=== PATIENT | male | born 1975 | race Caucasian/White ===

== ENCOUNTER 2016-05-07 04:40 | Emergency (ER) | payer OTHER ==
[2016-05-07 05:02] VITALS: BMI 37.5
[2016-05-07] MEDS ORDERED: SODIUM CHLORIDE 1,000 ML IV STA (05:02)
[2016-05-07] MEDS ORDERED: FAMOTIDINE 20 MG/50 ML IVPB 50 ML IVPB ONE ×2 (05:02→05:11)
[2016-05-07] MEDS ORDERED: methylPREDNISolone NA SUCC 125 MG/2 ML VIAL IVPB ONE (05:02)
--- NOTE | 2016-05-07 05:09 | PDOC ---
History of Present Illness - General Chief Complaint: Allergic Reaction Stated Complaint: ALLERGIC REACTION Time Seen by Provider: 05/07/16 04:46 History Source: Patient Exam Limitations: No Limitations - History of Present Illness Initial Comments: 05/07/16 05:07 41yo Male patient presents to ED c/o facial swelling and lip swelling. Patient states similar symptoms 4 years ago but not sure what caused it. However, patient states he take Lisinopril daily for B/P. He also states that symptom happened intermittently throughout the week but he continued to take the medications as symptoms worsen. Denies CP, Abd pain, Back pain, n/v/d, fever, diff breathing, or any other complaints at this time. Timing/Duration: unsure Severity: moderate Modifying Factors: worse with: cold therapy, eating, immobilization, medication , movement, rest, other Associated Symptoms: denies: denies symptoms, chest pain, cough, diaphoresis, fever/chills, headaches, loss of appetite, malaise, nausea/vomiting, rash, seizure, shortness of breath, syncope, weakness, other Aspirin Received prior to arrival: No: no aspirin today, unknown, 81 mg x 1, 81 mg x 2, 81 mg x 3, 81 mg x 4, 325 mg x 1, provided at home, provided by EMS, provided by [facility] Contraindications(Core Measure): No: Allergy, Other, Active Blding w/i 24 hrs., Plavix, Receiving Warfarin Past History - Travel Traveled outside of the country in the last 30 days: No Close contact w/someone who was outside of country & ill: No - Past Medical History Allergies/Adverse Reactions: Allergies Allergy/AdvReac Type Severity Reaction Status Date / Time lisinopril Allergy Severe Swelling Verified 05/07/16 06:50 Penicillins Allergy Rash Verified 05/07/16 04:48 Pork/Porcine Containing Allergy Verified 05/07/16 04:48 Products [Pork/Porcine Product Derivatives] Home Medications: Ambulatory Orders Lisinopril [Prinivil] 20 mg PO DAILY 05/07/16 HTN: Yes - Immunization History Immunization Up to Date: Yes - Psycho/Social/Smoking Cessation Hx Anxiety: No Suicidal Ideation: No Smoking Status: No Smoking History: Never smoked Have you smoked in the past 12 months: No Number of Cigarettes Smoked Daily: 0 Cigars Per Day: 0 Information on smoking cessation initiated: No Hx Alcohol Use: No Drug/Substance Use Hx: No Substance Use Type: None Review of Systems - Review of Systems Able to Perform ROS?: Yes Is the patient limited Cypriot proficient: No Constitutional: No: Chills, Fever HEENTM: Yes: Mouth Swelling, Other (Lip and facial swelling.). No: Eye Pain, Blurred Vision, Throat Pain, Throat Swelling Respiratory: No: Cough, Orthopnea, Shortness of Breath Cardiac (ROS): No: Chest Pain ABD/GI: No: Diarrhea, Nausea, Vomiting : No: Burning, Dysuria Musculoskeletal: No: Back Pain Integumentary: No: Bruising, Erythema, Rash, Sweating Neurological: No: Headache, Numbness, Tremors, Dizziness Psychiatric: No: Anxiety Endocrine: No: Flushing Hematologic/Lymphatic: No: Easy Bleeding, Easy Bruising, Swollen Glands All Other Systems: Reviewed and Negative *Physical Exam - Vital Signs Last Vital Signs Temp Pulse Resp BP Pulse Ox 98.1 F 85 20 149/73 100 05/07/16 04:48 05/07/16 04:48 05/07/16 04:48 05/07/16 04:48 05/07/16 04:48 - Physical Exam General Appearance: Yes: Nourished, Appropriately Dressed. No: Apparent Distress, Mild Distress HEENT: positive: EOMI, YASSINE, Normal ENT Inspection, Normal Voice, Symmetrical, TMs Normal, Pharynx Normal, Other (Moderate facial and lip swelling noted on examination. No acute or respiratory distress noted.). negative: Excessive drooling Neck: positive: Trachea midline, Supple Respiratory/Chest: positive: Lungs Clear, Normal Breath Sounds Cardiovascular: positive: Regular Rhythm, Regular Rate Gastrointestinal/Abdominal: positive: Normal Bowel Sounds, Soft Lymphatic: negative: Adenopathy Musculoskeletal: positive: Normal Inspection Extremity: positive: Normal Capillary Refill, Normal Inspection, Normal Range of Motion Integumentary: positive: Normal Color, Dry, Warm Neurologic: positive: boardmarker II-XII NML intact, Fully Oriented, Alert, Normal Mood/ Affect, Normal Response, Motor Strength /5 ED Treatment Course - LABORATORY CBC & Chemistry Diagram: 05/07/16 05:22 05/07/16 05:22 *DC/Admit/Observation/Transfer Diagnosis at time of Disposition: Angioedema Qualifiers: Encounter type: initial encounter Qualified Code(s): T78.3XXA - Angioneurotic edema, initial encounter - Discharge Dispostion Disposition: HOME Condition at time of disposition: Improved - Referrals Referrals: Luciana Antunez MD [Primary Care Provider] - - Patient Instructions Printed Discharge Instructions: DI for Angioedema, DI for Adverse Drug Reaction -- Allergic Additional Instructions: Discontinue your medication and go directly to your doctor to discuss other medication regimen. May return to the ED at any given time if your symptoms return.
[2016-05-07] MEDS ORDERED: methylPREDNISolone NA SUCC 125 MG/2 ML VIAL ONE (05:10)
[2016-05-07 05:29] LABS: BASOPHIL 0.6 % (0-2.0); EOSINOPHIL 1.8 % (0-4.5); MCH 28.7 pg (25.7-33.7); MCHC 32.4 g/dl (32.0-35.9); MEAN CELL VOLUME 88.6 fl (80-96); MEAN PLT VOLUME 8.3 fl (7.5-11.1); NEUTROPHILS 58.6 % (42.8-82.8); PLATELET COUNT 312 K/MM3 (134-434); RDW 13.5 % (11.9-15.9); WHITE BLOOD COUNT 7.3 K/mm3 (4.0-10.0)
[2016-05-07 06:02] LABS: ALBUMIN 3.8 g/dl (3.4-5.0); ALK PHOS 80 U/L (45-117); ANION GAP 8 (8-16); BILIRUBIN,TOTAL 0.3 mg/dL (0.2-1.0); CALCIUM 8.1 mg/dL (8.5-10.1); CO2 27 mmol/L (21-32); CREATININE 0.8 mg/dL (0.7-1.3); GLUCOSE,RANDOM 103 mg/dL (74-106); SGOT/AST 24 U/L (15-37); SGPT/ALT 53 U/L (12-78); TOT PROT 6.6 g/dl (6.4-8.2)
--- NOTE | 2016-05-07 07:52 | PDOC ---
History of Present Illness - General Chief Complaint: Allergic Reaction Stated Complaint: ALLERGIC REACTION Time Seen by Provider: 05/07/16 04:46 Past History - Past Medical History Allergies/Adverse Reactions: Allergies Allergy/AdvReac Type Severity Reaction Status Date / Time lisinopril Allergy Severe Swelling Verified 05/07/16 06:50 Penicillins Allergy Rash Verified 05/07/16 04:48 Pork/Porcine Containing Allergy Verified 05/07/16 04:48 Products [Pork/Porcine Product Derivatives] Home Medications: Ambulatory Orders Lisinopril [Prinivil] 20 mg PO DAILY 05/07/16 HTN: Yes - Immunization History Immunization Up to Date: Yes - Psycho/Social/Smoking Cessation Hx Anxiety: No Suicidal Ideation: No Smoking Status: No Smoking History: Never smoked Have you smoked in the past 12 months: No Number of Cigarettes Smoked Daily: 0 Cigars Per Day: 0 Information on smoking cessation initiated: No Hx Alcohol Use: No Drug/Substance Use Hx: No Substance Use Type: None *Physical Exam - Vital Signs Last Vital Signs Temp Pulse Resp BP Pulse Ox 98.1 F 85 20 149/73 100 05/07/16 04:48 05/07/16 04:48 05/07/16 04:48 05/07/16 04:48 05/07/16 04:48 ED Treatment Course - LABORATORY CBC & Chemistry Diagram: 05/07/16 05:22 05/07/16 05:22 - ADDITIONAL ORDERS Additional order review: Laboratory Results 05/07/16 05/07/16 05/07/16 06:30 05:22 05:22 Sodium 140 Potassium 3.9 Chloride 105 Carbon Dioxide 27 Anion Gap 8 BUN 13 Creatinine 0.8 Creat Clearance w eGFR > 60 Random Glucose 103 Calcium 8.1 L Total Bilirubin 0.3 AST 24 D ALT 53 D Alkaline Phosphatase 80 Total Protein 6.6 Albumin 3.8 Blood Type O POSITIVE O POSITIVE Antibody Screen Negative 05/07/16 05:22 RBC 5.05 MCV 88.6 MCHC 32.4 RDW 13.5 MPV 8.3 Neutrophils % 58.6 Lymphocytes % 29.8 D Monocytes % 9.2 Eosinophils % 1.8 D Basophils % 0.6 - Medications Given in the ED: ED Medications Discontinued Medications Generic Name Dose Route Start Last Admin Trade Name Freq PRN Reason Stop Dose Admin Diphenhydramine HCl 25 mg 05/07/16 05:02 05/07/16 05:09 Benadryl Injection - IVPUSH 05/07/16 05:03 25 mg ONCE ONE Administration Famotidine/Sodium Chloride 50 mls @ 100 mls/hr 05/07/16 05:02 05/07/16 05:09 Pepcid 20 Mg Premixed Ivpb - IVPB 05/07/16 05:31 100 mls/hr ONCE ONE Administration Sodium Chloride 1,000 mls @ 1,000 mls/hr 05/07/16 05:02 05/07/16 05:09 Normal Saline - IV 05/07/16 06:01 1,000 mls/hr ASDIR STA Administration Methylprednisolone Sodium Succinate 125 mg 05/07/16 05:02 05/07/16 05:09 Solu-Medrol - IVPB 05/07/16 05:03 125 mg ONCE ONE Administration Medical Decision Making - Critical Care Time Total Critical Care Time (minutes): 30 Critical Care Statement: The care of this patient involved high complexity decision making to prevent further life threatening deterioration of the patient 's condition and/or to evalute & treat vital organ system(s) failure or risk of failure. *DC/Admit/Observation/Transfer Diagnosis at time of Disposition: Angioedema Qualifiers: Encounter type: initial encounter Qualified Code(s): T78.3XXA - Angioneurotic edema, initial encounter - Discharge Dispostion Disposition: HOME Condition at time of disposition: Improved - Referrals Referrals: Luciana Antunez MD [Primary Care Provider] - - Patient Instructions Printed Discharge Instructions: DI for Angioedema, DI for Adverse Drug Reaction -- Allergic Additional Instructions: Discontinue your medication and go directly to your doctor to discuss other medication regimen. May return to the ED at any given time if your symptoms return.
[2016-05-07 10:51] VITALS: BP 123/67; PULSE 76; TEMP 98.6
--- NOTE | 2016-05-07 11:39 | PDOC ---
*Physical Exam - Vital Signs Last Vital Signs Temp Pulse Resp BP Pulse Ox 98.6 F 76 18 123/67 98 05/07/16 10:50 05/07/16 10:50 05/07/16 10:50 05/07/16 10:50 05/07/16 10:50 - Physical Exam General Appearance: Yes: Nourished, Appropriately Dressed. No: Apparent Distress HEENT: positive: Normal Voice, Pharynx Normal (uvula midline), Other (noted angioedema of the upper lip and right lower lip ) Respiratory/Chest: negative: Stridor, Wheezing Cardiovascular: positive: Regular Rhythm, Regular Rate. negative: Murmur Integumentary: positive: Normal Color, Warm, Moist Neurologic: positive: Motor Strength 5/5 (ambulatory) ED Treatment Course - LABORATORY CBC & Chemistry Diagram: 05/07/16 05:22 05/07/16 05:22 - ADDITIONAL ORDERS Additional order review: Laboratory Results 05/07/16 05/07/16 05/07/16 06:30 05:22 05:22 Sodium 140 Potassium 3.9 Chloride 105 Carbon Dioxide 27 Anion Gap 8 BUN 13 Creatinine 0.8 Creat Clearance w eGFR > 60 Random Glucose 103 Calcium 8.1 L Total Bilirubin 0.3 AST 24 D ALT 53 D Alkaline Phosphatase 80 Total Protein 6.6 Albumin 3.8 Blood Type O POSITIVE O POSITIVE Antibody Screen Negative 05/07/16 05:22 RBC 5.05 MCV 88.6 MCHC 32.4 RDW 13.5 MPV 8.3 Neutrophils % 58.6 Lymphocytes % 29.8 D Monocytes % 9.2 Eosinophils % 1.8 D Basophils % 0.6 - Medications Given in the ED: ED Medications Discontinued Medications Generic Name Dose Route Start Last Admin Trade Name Freq PRN Reason Stop Dose Admin Diphenhydramine HCl 25 mg 05/07/16 05:02 05/07/16 05:09 Benadryl Injection - IVPUSH 05/07/16 05:03 25 mg ONCE ONE Administration Famotidine/Sodium Chloride 50 mls @ 100 mls/hr 05/07/16 05:02 05/07/16 05:09 Pepcid 20 Mg Premixed Ivpb - IVPB 05/07/16 05:31 100 mls/hr ONCE ONE Administration Sodium Chloride 1,000 mls @ 1,000 mls/hr 05/07/16 05:02 05/07/16 05:09 Normal Saline - IV 05/07/16 06:01 1,000 mls/hr ASDIR STA Administration Methylprednisolone Sodium Succinate 125 mg 05/07/16 05:02 05/07/16 05:09 Solu-Medrol - IVPB 05/07/16 05:03 125 mg ONCE ONE Administration Medical Decision Making - Medical Decision Making 05/07/16 07:34 Pt received in sign out from RAMÍREZ Cadena. Patient with angioedema secondary to lisinopril. Patient currently awaiting FFP since he did not respond to steroids and antihistamine completely. Patient denies difficulty swallowing, difficulty speaking, difficulty breathing, no chest pain. Vital signs stable. 05/07/16 11:36 H and completed 2 units of FFP. Patient is currently asymptomatic and has no angioedema at this time. Patient be discharged home to stop his lisinopril and go directly to his PCP Dr. Lindquist to discuss other medical regimens for his hypertension. Selected Entries 05/07/16 10:50 Temperature 98.6 F Pulse Rate [ 76 Apical] Respiratory 18 Rate Blood Pressure 123/67 [Arm] O2 Sat by Pulse 98 Oximetry (%) Oxygen Flow 2 Rate *DC/Admit/Observation/Transfer Diagnosis at time of Disposition: Angioedema Qualifiers: Encounter type: initial encounter Qualified Code(s): T78.3XXA - Angioneurotic edema, initial encounter - Discharge Dispostion Disposition: HOME Condition at time of disposition: Improved - Referrals Referrals: Luciana Antunez MD [Primary Care Provider] - - Patient Instructions Printed Discharge Instructions: DI for Adverse Drug Reaction -- Allergic, DI for Angioedema Additional Instructions: Discontinue your medication and go directly to your doctor to discuss other medication regimen. May return to the ED at any given time if your symptoms return.
== END 2016-05-07 11:51 | disposition home or self-care (01) ==
LOC: JER 04:40
PROC: 3E033GC Introduction of Other Therapeutic Substance into Peripheral Vein, Percutaneous Approach (ICD-10-PCS; principal; 2016-05-07)
PROC: 3E0333Z Introduction of Anti-inflammatory into Peripheral Vein, Percutaneous Approach (ICD-10-PCS; 2016-05-07)
DX: T78.3XXA Angioneurotic edema, initial encounter (principal); T46.4X5A Adverse effect of angiotensin-converting-enzyme inhibitors, initial encounter; Y92.038 Other place in apartment as the place of occurrence of the external cause
CPT/HCPCS: 36415; 36430; 80053; 85025; 86850; 86900; 86901; 99283-25; P9017

== ENCOUNTER 2016-09-23 20:52 | Emergency (ER) | payer OTHER ==
[2016-09-23 20:58] VITALS: BMI 35.4
--- NOTE | 2016-09-23 21:14 | PDOC ---
History of Present Illness - General History Source: Patient Exam Limitations: No Limitations - History of Present Illness Initial Comments: 09/23/16 21:37 The patient is a 41-year-old male, with a significant past medical history of HTN, who presents to the ED s/p allergic reaction today. Pt presents with cheek and lip swelling and itchiness. Pt was seen in the ED on 06/02 with similar symptoms and was found to be allergic to his BP medication Lisinopril. PCP knows of the pts allergy and has changed his medication. Pt denies taking any Lisinopril recently. He did follow up as an outpatient with a Neurologist and tests revealed no significant findings. Upon examination, pt denies any shortness of breath. Pt denies any fevers, chills, cough, nausea, vomiting, diarrhea, or abdominal pain. Pt denies any chest pain, neck pain, neck stiffness, or back pain. Allergies: Lisinopril. Penicillin. Past Surgical History: None reported Social History: No tobacco and recreational drug use. Occasional ETOH use- a few beers. Primary Care Physician: Dr. Luciana Jane [phone]/ <Pippa Francis - Last Filed: 09/23/16 21:37> <Chichi De La Torre - Last Filed: 09/24/16 05:22> - General Chief Complaint: Allergic Reaction Stated Complaint: ALLERGY REACTION Time Seen by Provider: 09/23/16 21:12 Past History <Pippa Francis - Last Filed: 09/23/16 21:37> - Past Medical History HTN: Yes (stopped meds 2 wks ago s/p angioedema) - Immunization History Immunization Up to Date: Yes - Psycho/Social/Smoking Cessation Hx Anxiety: No Suicidal Ideation: No Smoking Status: No Smoking History: Never smoked Have you smoked in the past 12 months: No Number of Cigarettes Smoked Daily: 0 Cigars Per Day: 0 Hx Alcohol Use: Yes Drug/Substance Use Hx: No Substance Use Type: None <Chichi De La Torre - Last Filed: 09/24/16 05:22> - Past Medical History Allergies/Adverse Reactions: Allergies Allergy/AdvReac Type Severity Reaction Status Date / Time lisinopril Allergy Severe Swelling Verified 09/23/16 20:54 Penicillins Allergy Rash Verified 09/23/16 20:54 Pork/Porcine Containing Allergy Verified 06/02/16 15:09 Products [Pork/Porcine Product Derivatives] Home Medications: Ambulatory Orders Diphenhydramine HCl [Benadryl -] 25 mg PO Q6H PRN #28 capsule 06/04/16 Epinephrine [Epipen 2-Alexey] 0.3 mg IJ ASDIR #1 kit 06/04/16 Review of Systems - Review of Systems Able to Perform ROS?: Yes Comments:: 09/23/16 21:38 GENERAL/CONSTITUTIONAL: No fever or chills. No weakness. HEAD, EYES, EARS, NOSE AND THROAT: No change in vision. No ear pain or discharge. No sore throat. CARDIOVASCULAR: No chest pain or shortness of breath. RESPIRATORY: No cough, wheezing, or hemoptysis. GASTROINTESTINAL: No nausea, vomiting, diarrhea or constipation. GENITOURINARY: No dysuria, frequency, or change in urination. MUSCULOSKELETAL: No joint or muscle swelling or pain. No neck or back pain. SKIN:+cheek/lip swelling and itchiness NEUROLOGIC: No headache, vertigo, loss of consciousness, or change in strength/ sensation. ENDOCRINE: No increased thirst. No abnormal weight change. HEMATOLOGIC/LYMPHATIC: No anemia, easy bleeding, or history of blood clots. <Pippa Frnacis - Last Filed: 09/23/16 21:37> *Physical Exam - Vital Signs Last Vital Signs Temp Pulse Resp BP Pulse Ox 97.6 F 74 18 153/81 98 09/23/16 20:55 09/23/16 20:55 09/23/16 20:55 09/23/16 20:55 09/23/16 20:55 <Pippa Francis - Last Filed: 09/23/16 21:37> - Vital Signs Last Vital Signs Temp Pulse Resp BP Pulse Ox 97.6 F 74 18 153/81 98 09/23/16 20:55 09/23/16 20:55 09/23/16 20:55 09/23/16 20:55 09/23/16 20:55 - Physical Exam Comments: GENERAL: Awake, alert, and fully oriented, in no acute distress HEAD: No signs of trauma EYES: PERRLA, EOMI, sclera anicteric, conjunctiva clear ENT: +Edema with trace erythema to the R cheek and lateral portion of upper and lower lip on the R side. Auricles normal inspection, hearing grossly normal, nares patent, oropharynx clear without exudates. Moist mucosa. Normal phonation. NECK: Normal ROM, supple, no lymphadenopathy, JVD, or masses LUNGS: Breath sounds equal, clear to auscultation bilaterally. No wheezes, and no crackles HEART: Regular rate and rhythm, normal S1 and S2, no murmurs, rubs or gallops ABDOMEN: Soft, nontender, normoactive bowel sounds. No guarding, no rebound. No masses EXTREMITIES: Normal range of motion, no edema. No clubbing or cyanosis. No cords, erythema, or tenderness NEUROLOGICAL: Cranial nerves II through XII grossly intact. Normal speech, normal gait SKIN: Warm, Dry, normal turgor, no rashes or lesions noted. <Chichi De La Torre - Last Filed: 09/24/16 05:22> ED Treatment Course - LABORATORY CBC & Chemistry Diagram: 09/23/16 22:00 09/23/16 22:00 <Chichi De La Torre - Last Filed: 09/24/16 05:22> Medical Decision Making - Medical Decision Making 09/24/16 00:02 Pt reassessed. Entire lower lip is affected at this time. Awaiting FFP. Will cont to monitor. 09/24/16 05:22 Symptoms resolved with FFP. Stable for DC home. <Chichi De La Torre - Last Filed: 09/24/16 05:22> *DC/Admit/Observation/Transfer - Attestations Scribe Attestion: 09/23/16 21:40 Documentation prepared by Pippa Francis, acting as chief medical technologist for Chichi De La Torre MD. <Pippa Francis - Last Filed: 09/23/16 21:37> - Discharge Dispostion Admit: No <Chichi De La Torre - Last Filed: 09/24/16 05:22> Diagnosis at time of Disposition: Angioedema Qualifiers: Encounter type: initial encounter Qualified Code(s): T78.3XXA - Angioneurotic edema, initial encounter - Discharge Dispostion Disposition: HOME Condition at time of disposition: Stable - Referrals Referrals: Luciana Antunez MD [Primary Care Provider] - - Patient Instructions Printed Discharge Instructions: DI for Angioedema
[2016-09-23] MEDS ORDERED: methylPREDNISolone NA SUCC 125 MG/2 ML VIAL IVPB ONE (21:19)
[2016-09-23] MEDS ORDERED: SODIUM CHLORIDE 1,000 ML IV STA (21:19)
[2016-09-23] MEDS ORDERED: FAMOTIDINE 20 MG/50 ML IVPB 50 ML IVPB ONE ×2 (21:19→21:45)
[2016-09-23] MEDS ORDERED: methylPREDNISolone NA SUCC 125 MG/2 ML VIAL ONE (21:42)
[2016-09-23 22:07] LABS: BASOPHIL 0.6 % (0-2.0); EOSINOPHIL 0.8 % (0-4.5); MCH 28.7 pg (25.7-33.7); MCHC 33.2 g/dl (32.0-35.9); MEAN CELL VOLUME 86.6 fl (80-96); MEAN PLT VOLUME 8.8 fl (7.5-11.1); NEUTROPHILS 62.8 % (42.8-82.8); PLATELET COUNT 245 K/MM3 (134-434); RDW 13.7 % (11.9-15.9); WHITE BLOOD COUNT 7.1 K/mm3 (4.0-10.0)
[2016-09-23 22:40] LABS: ALBUMIN 3.8 g/dl (3.4-5.0); ALK PHOS 76 U/L (45-117); ANION GAP 8 (8-16); BILIRUBIN,TOTAL 0.7 mg/dL (0.2-1.0); CALCIUM 9.3 mg/dL (8.5-10.1); CO2 29 mmol/L (21-32); COCKROFT - GAULT 162.95; CREATININE 0.9 mg/dL (0.7-1.3); GLUCOSE,RANDOM 115 mg/dL (74-106); SGOT/AST 31 U/L (15-37); SGPT/ALT 52 U/L (12-78); TOT PROT 6.6 g/dl (6.4-8.2)
[2016-09-24 05:55] VITALS: BP 111/68; PULSE 70; TEMP 97.7
== END 2016-09-24 05:59 | disposition home or self-care (01) ==
LOC: JER 20:52
PROC: 3E033GC Introduction of Other Therapeutic Substance into Peripheral Vein, Percutaneous Approach (ICD-10-PCS; principal; 2016-09-23)
PROC: 3E033GC Introduction of Other Therapeutic Substance into Peripheral Vein, Percutaneous Approach (ICD-10-PCS; 2016-09-23)
PROC: 3E0333Z Introduction of Anti-inflammatory into Peripheral Vein, Percutaneous Approach (ICD-10-PCS; 2016-09-23)
DX: T78.3XXA Angioneurotic edema, initial encounter (principal)
CPT/HCPCS: 36415; 36430; 80053; 85025; 86850; 86900; 86901; 96365; 96375; 99283-25; P9017

== ENCOUNTER 2021-01-16 04:16 | Day surgery (SDC) | payer OTHER ==
[2021-01-12 17:39] VITALS: BMI 25.8
[~2021-01-16 04:16] MED LIST: ceFAZolin SODIUM 1 GM VIAL IVPB ONE
[2021-01-16] MEDS ORDERED: ceFAZolin SODIUM 1 GM VIAL ONE (11:16)
[2021-01-16] MEDS ORDERED: MIDAZOLAM HCL 2 MG/2 ML SINGLE DOSE VIAL ONE ×2 (12:26→12:36)
[2021-01-16] MEDS ORDERED: KETOROLAC TROMETHAMINE 30 MG/1 ML VIAL ONE (12:37)
[2021-01-16] MEDS ORDERED: ACETAMINOPHEN 325 MG TABLET (FP) ONE (13:26)
[2021-01-16] MEDS ORDERED: ACETAMINOPHEN 325 MG TABLET (FP) PO ONE (13:29)
[2021-01-16 14:12] VITALS: BP 142/82; PULSE 82; TEMP 97.8
== END 2021-01-16 14:20 | disposition home or self-care (01) ==
LOC: JASU-SURG 04:16
PROVIDERS: ATTEND Urology
PROC: 0TF4XZZ Fragmentation in Left Kidney Pelvis, External Approach (ICD-10-PCS; principal; 2021-01-16 12:00)
DX: N20.0 Calculus of kidney (principal)